=== PATIENT | female | born 1965 | race Caucasian/White ===

== ENCOUNTER → 2021-10-31 | Outpatient (CLI) | payer MEDICARE, OTHER ==
[~2021-10-31] VITALS: Ht 154.9 cm; Wt 66.2 kg
== END ==
LOC: OPSV 10-19 08:00
DX: M05.79 Rheumatoid arthritis with rheumatoid factor of multiple sites without organ or systems involvement (principal)
CPT/HCPCS: 96365; 96375; J1602; J2920

== ENCOUNTER → 2022-02-10 | Outpatient (CLI) | payer MEDICARE, OTHER ==
[~2022-02-10] VITALS: Ht 154.9 cm; Wt 66.2 kg
[2022-02-10 12:42] LABS: HEMOGLOBIN 11.4 gm/dl (12.3-15.3); RED BLOOD COUNT 4.18 M/UL (4.00-5.10); WHITE BLOOD COUNT 6.6 K/UL (4.5-11.0)
[2022-02-10 13:05] LABS: BUN/CREATININE RATIO 21 (0-10)
[2022-02-11 08:15] LABS: HBSAG SCREEN Negative (Negative); HCV ANTIBODY <0.1 (0.0-0.9); HEP B CORE AB, TOT Negative (Negative); HEPATITIS B SURF AB QUANT 4.4 mIU/mL (Immunity>9.9)
[2022-02-12 11:12] LABS: RHEUMATOID ARTHRITIS FACTOR >650.0 IU/mL (<14.0)
== END ==
LOC: OPSV 01-23 11:00
PROVIDERS: Internal Medicine
DX: M19.90 Unspecified osteoarthritis, unspecified site (principal); M25.549 Pain in joints of unspecified hand; Z79.52 Long term (current) use of systemic steroids; Z79.899 Other long term (current) drug therapy
CPT/HCPCS: 80053; 83520; 85025; 85652; 86140; 86200; 86317; 86431; 86704; 86803; 87340; 96365; 96375; J1602; J2920

== ENCOUNTER → 2022-04-07 | Outpatient (CLI) | payer MEDICARE, OTHER ==
[~2022-04-07] VITALS: Ht 154.9 cm; Wt 66.2 kg
== END ==
LOC: OPSV 12:00
DX: M06.89 Other specified rheumatoid arthritis, multiple sites (principal)
CPT/HCPCS: 96365; 96375; J1602; J2920